=== PATIENT | male | born 1980 | race Hispanic/Latino ===

== ENCOUNTER → 2020-06-05 | Outpatient (CLI) | payer BC ==
[~2020-06-05] MED LIST: IOPAMIDOL 370 MG/ML 200 ML INFUS..BTL INJ ONE; SODIUM CHLORIDE 0.9% 50ML 50 ML ONE
--- NOTE | 2020-06-06 09:00 | Diagnostic Imaging Report ---
CT of the abdomen and pelvis, with contrast, 06/05/2020. History: Upper abdominal pain, acid reflux. Comparison: None available. Technique: Multidetector CT scanning of the abdomen and pelvis was performed from the level of the lung bases to the inferior pubic rami after intravenous administration of contrast. Oral water was given. Coronal and sagittal multiplanar reformations were obtained. RADIATION DOSE: Total DLP: 227 mGy*cm Dose modulation, iterative reconstruction, and/or weight based adjustment of the mA/kV was utilized to reduce the radiation dose to as low as reasonably achievable. Discussion: LUNG BASES: No visualized abnormalities. ABDOMEN: The liver, gallbladder, biliary tree, spleen, pancreas, adrenal glands, and kidneys are normal. The hepatic vein, portal vein, and splenic vein are patent. The abdominal aorta is within normal limits for size. The celiac trunk, SMA, XANDER, and bilateral renal arteries are patent. The iliac vessels are patent. The stomach, small bowel, and large bowel are unremarkable. The appendix is visualized and is normal. There is no evidence of adenopathy or free fluid. PELVIS: The bladder, prostate, and seminal vesicles are normal in appearance. There is no evidence of free fluid or adenopathy. BONES AND SOFT TISSUES: No abnormality. IMPRESSION: Normal CT of the abdomen and pelvis. No evidence of cholelithiasis, nephrolithiasis, appendicitis, or bowel obstruction. Signed by: Anil Clarke on 06/06/2020 8:57 AM
== END ==
LOC: CT 16:41
PROVIDERS: ATTEND Family Medicine
DX: R10.12 Left upper quadrant pain (principal)
CPT/HCPCS: 74177; Q9967